=== PATIENT | female | born 1960 | race Caucasian/White ===

== ENCOUNTER 2021-01-03 15:01 | Emergency (ER) | payer OTHER ==
[~2021-01-03 15:01] MED LIST: Lidocaine Viscous Sol 2% 15 ml UD Cup ONE
[2021-01-03] MEDS ORDERED: Ondansetron PF 4 MG/2 ML Vial ONE (15:44)
[2021-01-03 15:52] LABS: Hemoglobin 14.8 g/dL (12.0-16.0); Mean Corpuscular HGB CONC 32.2 g/dL (32.0-36.0); Mean Corpuscular Hemoglobin 28.4 pg (27.0-31.0); Mean Corpuscular Volume 88.2 fL (78.0-98.0); Platelet Count 266 thou/uL (130-400); RBC Distribution Width 14.2 % (11.5-14.5); Red Blood Cell (RBC) Count 5.22 mill/uL (4.20-5.40); White Blood Cell (WBC) Count 4.2 thou/uL (4.8-10.8)
[2021-01-03 16:06] LABS: ALT (SGPT) 105 U/L (8-55); AST (SGOT) 36 U/L (5-34); Alkaline Phosphatase 75 U/L (40-110); Anion Gap 16 mmol/L (10-20); BUN (Urea Nitrogen) 17 mg/dL (9.8-20.1); Bilirubin, Total 0.5 mg/dL (0.2-1.2); Calc. Creatinine Clearance 0 mL/min (70-130); Calcium 10.3 mg/dL (7.8-10.44); Carbon Dioxide 23 mmol/L (22-29); Chloride 105 mmol/L (98-107); Globulin 2.7 g/dL (2.4-3.5); Glucose 105 mg/dL (70-105); Lipase 28 U/L (8-78); Potassium 4.1 mmol/L (3.5-5.1); Protein, Total 6.7 g/dL (6.0-8.3); Sodium 140 mmol/L (136-145)
[2021-01-03 17:37] LABS: Band 16 % (5-11); Eosinophils 4 % (0-10); Lymphocytes 33 % (21-51); MDiff Complete? YES; Monocytes 7 % (0-10); Neutrophil 37 % (42-75); Reactive Lymphocytes 1 % (0-10)
[2021-01-03] MEDS ORDERED: Oxymetazoline HCl 0.05% (30 ML BOT) ONE (17:54)
[2021-01-03] MEDS ORDERED: Benzocaine 20% Spray 60 ML CAN ONE (17:54)
[2021-01-03] MEDS ORDERED: Lorazepam 2 MG/ML VIAL ONE (18:14)
== END 2021-01-03 19:15 | disposition short-term general hospital (02) ==
LOC: BURERS 15:01
DX: K56.609 Unspecified intestinal obstruction, unspecified as to partial versus complete obstruction (principal); I10 Essential (primary) hypertension; Z87.891 Personal history of nicotine dependence; Z79.899 Other long term (current) drug therapy
CPT/HCPCS: 36415; 74018; 74022; 80053; 83690; 85025; 96374; 96375; J2060; J2405

== ENCOUNTER 2021-02-07 10:31 | Outpatient (CLI) | payer OTHER ==
[2021-02-07 10:47] LABS: Hemoglobin 15.3 g/dL (12.0-16.0); Mean Corpuscular HGB CONC 33.4 g/dL (32.0-36.0); Mean Corpuscular Hemoglobin 28.6 pg (27.0-31.0); Mean Corpuscular Volume 85.7 fL (78.0-98.0); Mean Platelet Volume 5.8 fL (7.4-10.4); Platelet Count 218 thou/uL (130-400); Red Blood Cell (RBC) Count 5.36 mill/uL (4.20-5.40); White Blood Cell (WBC) Count 2.1 thou/uL (4.8-10.8)
[2021-02-07 10:59] LABS: Anion Gap 17 mmol/L (10-20); BUN (Urea Nitrogen) 15 mg/dL (9.8-20.1); Calc. Creatinine Clearance 0 mL/min (70-130); Calcium 10.1 mg/dL (7.8-10.44); Carbon Dioxide 19 mmol/L (22-29); Chloride 109 mmol/L (98-107); Glucose 120 mg/dL (70-105); Potassium 4.3 mmol/L (3.5-5.1); Sodium 141 mmol/L (136-145)
[2021-02-07 11:21] LABS: MDiff Complete? YES
[2021-02-07 11:22] LABS: Eosinophils 4 % (0-10); Lymphocytes 44 % (21-51); Monocytes 7 % (0-10); Neutrophil 38 % (42-75); Platelet Morphology Comment Appears Adequate; RBC Morphology Normal; Reactive Lymphocytes 5 % (0-10)
== END 2021-02-07 10:32 | disposition home or self-care (01) ==
LOC: BURLABSP 10:31
PROVIDERS: ATTEND Nurse Practitioner
DX: C20 Malignant neoplasm of rectum (principal); K56.609 Unspecified intestinal obstruction, unspecified as to partial versus complete obstruction; G62.9 Polyneuropathy, unspecified; I10 Essential (primary) hypertension
CPT/HCPCS: 80048; 83735; 85025

== ENCOUNTER 2021-02-22 14:01 | Inpatient (IN) | payer OTHER ==
[~2021-02-22 14:01] MED LIST changes: +Iopamidol 370 76% 100 ML VIAL ONE; -Lidocaine Viscous Sol 2% 15 ml UD Cup ONE
[2021-02-22] MEDS ORDERED: Fentanyl 100 MCG/2 ML VIAL ONE (14:31)
[2021-02-22 14:36] LABS: ALT (SGPT) 21 U/L (8-55); AST (SGOT) 19 U/L (5-34); Albumin 4.6 g/dL (3.5-5.0); Alkaline Phosphatase 108 U/L (40-110); Anion Gap 19 mmol/L (10-20); BUN (Urea Nitrogen) 24 mg/dL (9.8-20.1); Bicarbonate (HCO3v) 13.5 mmol/L (22.0-28.0); Bilirubin, Total 1.1 mg/dL (0.2-1.2); CO2 Tension (PvCO2) 14.8 mmHg (42.0-51.0); Calc. Creatinine Clearance 0 mL/min (70-130); Calcium 11.1 mg/dL (7.8-10.44); Calcium, Ionized 1.22 mmol/L (1.15-1.33); Carbon Dioxide 14 mmol/L (22-29); Chloride 106 mmol/L (98-107); Chloride 107 mmol/L (98-107); Globulin 2.8 g/dL (2.4-3.5); Glucose 120 mg/dL (70-105); Hemoglobin 16.4 g/dL (12.0-16.0); Hemoglobin - Calc 15.3 g/dL (12.0-16.0); Lipase 146 U/L (8-78); Mean Corpuscular HGB CONC 34.5 g/dL (32.0-36.0); Mean Corpuscular Hemoglobin 29.2 pg (27.0-31.0); Mean Corpuscular Volume 84.6 fL (78.0-98.0); Mean Platelet Volume 8.5 fL (7.4-10.4); Platelet Count 127 thou/uL (130-400); Potassium 4.3 mmol/L (3.5-5.1); Protein, Total 7.4 g/dL (6.0-8.3); RBC Distribution Width 15.1 % (11.5-14.5); Red Blood Cell (RBC) Count 5.63 mill/uL (4.20-5.40); Sodium 135 mmol/L (136-145); Sodium 136 mmol/L (138-145); White Blood Cell (WBC) Count 3.9 thou/uL (4.8-10.8); vO2 Saturation-calc 98.8 % (60.0-85.0)
[2021-02-22 14:50] LABS: Anisocytosis SLIGHT = 6-15 cells (100X) (0-5/hpf); Band 5 % (5-11); Lymphocytes 52 % (21-51); MDiff Complete? YES; Monocytes 8 % (0-10); Neutrophil 30 % (42-75); Platelet Morphology Comment Appears Decreased; Reactive Lymphocytes 5 % (0-10)
[2021-02-22] MEDS ORDERED: Famotidine In NaCl 20 mg/50 ml Premix Bag ONE (15:35)
[2021-02-22 17:03] LABS: Lactic Acid 1.1 mmol/L (0.5-2.2)
[2021-02-22 17:52] LABS: SARS-CoV-2 NAA Rapid Test Not Detected (NotDetected)
[2021-02-22] MEDS ORDERED: Fentanyl 100 MCG/2 ML VIAL SLOW IVP PRN ×2 (19:23→19:26)
[2021-02-22] MEDS ORDERED: Ondansetron ODT 4 MG TAB SL PRN (19:30)
[2021-02-22] MEDS ORDERED: Ondansetron PF 4 MG/2 ML Vial IVP PRN (19:30)
[2021-02-22] MEDS: Dextrose 5 %-0.45 % NaCl 1,000 ML IV SCH (20:00)
[2021-02-22] MEDS ORDERED: Prevnar 13-Val Conj/PF 0.5 ML SYRINGE IM ONE (21:00)
[2021-02-22 23:08] VITALS: BMI 21.4
[2021-02-23] MEDS: Dextrose 5 %-0.45 % NaCl 1,000 ML IV SCH ×4 (02:31→19:44)
[2021-02-23] MEDS ORDERED: Fentanyl 100 MCG/2 ML VIAL ONE (02:37)
[2021-02-23 06:28] LABS: Anion Gap 11 mmol/L (10-20)
[2021-02-23 06:53] LABS: Albumin 3.3 g/dL (3.5-5.0); BUN (Urea Nitrogen) 14 mg/dL (9.8-20.1); Calc. Creatinine Clearance 78 mL/min (70-130); Calcium 8.8 mg/dL (7.8-10.44); Carbon Dioxide 20 mmol/L (22-29); Chloride 109 mmol/L (98-107); Glucose 116 mg/dL (70-105); Potassium 3.6 mmol/L (3.5-5.1); Sodium 136 mmol/L (136-145)
[2021-02-23] MEDS ORDERED: Acetaminophen 500 MG TAB PO PRN (07:46)
[2021-02-23] MEDS ORDERED: Polyethylene Glycol 3350 17 GM Packet PO PRN (07:46)
[2021-02-23] MEDS ORDERED: Docusate 100 MG CAP PO PRN (07:46)
[2021-02-23] MEDS ORDERED: valACYclovir 500 MG TAB PO PRN (07:46)
[2021-02-23] MEDS ORDERED: HALCION PO PRN (08:11)
[2021-02-23] MEDS ORDERED: PIMECROLIMUS 30 GM TOP PRN (08:13)
[2021-02-23] MEDS: Fluconazole 100 MG TAB PO SCH (09:52)
[2021-02-23] MEDS: Multivit, Therapeutic 1 TAB PO SCH (09:52)
[2021-02-23] MEDS: Cholecalciferol 1,000 UNITS (25 MCG) TAB PO SCH (09:54)
[2021-02-23] MEDS: Gabapentin 300 MG CAP PO SCH ×2 (09:54→20:32)
[2021-02-23] MEDS: Proctozone-HC 30 GM TUBE TOP SCH ×2 (10:04→20:32)
[2021-02-23 11:25] LABS: Phosphorus 2.8 mg/dL (2.3-4.7)
[2021-02-23] MEDS: Promethazine 25 MG TAB PO PRN (11:30)
[2021-02-23] MEDS ORDERED: Lorazepam 2 MG/ML VIAL ONE (12:27)
[2021-02-23] MEDS: Lorazepam 2 MG/ML VIAL SLOW IVP PRN (12:33)
[2021-02-23] MEDS: Metoclopramide HCl 10 MG/2 ML VIAL IVP PRN (12:45)
[2021-02-23] MEDS ORDERED: Ondansetron PF 4 MG/2 ML Vial IVP PRN (17:57)
[2021-02-24] MEDS: Dextrose 5 %-0.45 % NaCl 1,000 ML IV SCH ×3 (00:29→17:14)
[2021-02-24 05:17] LABS: Anion Gap 13 mmol/L (10-20); BUN (Urea Nitrogen) 6 mg/dL (9.8-20.1); Calc. Creatinine Clearance 83 mL/min (70-130); Calcium 8.8 mg/dL (7.8-10.44); Carbon Dioxide 19 mmol/L (22-29); Chloride 108 mmol/L (98-107); Glucose 107 mg/dL (70-105); Potassium 3.4 mmol/L (3.5-5.1); Sodium 137 mmol/L (136-145)
[2021-02-24 05:20] LABS: Hemoglobin 11.1 g/dL (12.0-16.0); Mean Corpuscular HGB CONC 33.7 g/dL (32.0-36.0); Mean Corpuscular Hemoglobin 29.1 pg (27.0-31.0); Mean Corpuscular Volume 86.5 fL (78.0-98.0); Mean Platelet Volume 8.1 fL (7.4-10.4); Platelet Count 86 thou/uL (130-400); RBC Distribution Width 15.1 % (11.5-14.5); White Blood Cell (WBC) Count 1.3 thou/uL (4.8-10.8)
[2021-02-24] MEDS: Metoclopramide HCl 10 MG/2 ML VIAL IVP PRN (06:24)
[2021-02-24] MEDS: Fluconazole 100 MG TAB PO SCH (09:05)
[2021-02-24] MEDS: Gabapentin 300 MG CAP PO SCH ×2 (09:06→20:27)
[2021-02-24] MEDS: Multivit, Therapeutic 1 TAB PO SCH (09:09)
[2021-02-24] MEDS: Cholecalciferol 1,000 UNITS (25 MCG) TAB PO SCH (09:09)
[2021-02-24] MEDS: Proctozone-HC 30 GM TUBE TOP SCH ×2 (09:13→20:26)
[2021-02-24] MEDS: Acetaminophen 325 MG TAB PO PRN ×2 (14:20→20:35)
[2021-02-24] MEDS: Lorazepam 2 MG/ML VIAL SLOW IVP PRN (14:22)
[2021-02-24] MEDS: Promethazine 25 MG TAB PO PRN (20:37)
[2021-02-25] MEDS: Dextrose 5 %-0.45 % NaCl 1,000 ML IV SCH (01:20)
[2021-02-25] MEDS: Lorazepam 2 MG/ML VIAL SLOW IVP PRN (04:15)
[2021-02-25] MEDS: Promethazine 25 MG TAB PO PRN (05:43)
[2021-02-25] MEDS: Fluconazole 100 MG TAB PO SCH (08:15)
[2021-02-25] MEDS: Gabapentin 300 MG CAP PO SCH (08:17)
[2021-02-25] MEDS: Cholecalciferol 1,000 UNITS (25 MCG) TAB PO SCH (08:18)
[2021-02-25] MEDS: Multivit, Therapeutic 1 TAB PO SCH (08:18)
[2021-02-25] MEDS: Proctozone-HC 30 GM TUBE TOP SCH (08:20)
[2021-02-25 10:05] VITALS: BP 112/70; TEMP 98.7
== END 2021-02-25 11:45 | disposition home or self-care (01) | DRG 809 ==
LOC: BURERS 14:01 → OBSVTOIN 17:01 → BURMED 17:01
PROVIDERS: ADMIT Family Medicine; ATTEND Family Medicine
DX: D70.1 Agranulocytosis secondary to cancer chemotherapy (principal); C20 Malignant neoplasm of rectum; T45.1X5A Adverse effect of antineoplastic and immunosuppressive drugs, initial encounter; E86.0 Dehydration; I10 Essential (primary) hypertension; Z20.822 Contact with and (suspected) exposure to COVID-19; Z88.0 Allergy status to penicillin; Z88.8 Allergy status to other drugs, medicaments and biological substances; Z88.5 Allergy status to narcotic agent; Z79.899 Other long term (current) drug therapy; Z90.89 Acquired absence of other organs; Z90.710 Acquired absence of both cervix and uterus; Z93.2 Ileostomy status
CPT/HCPCS: 36415; 71275; 74177; 80048; 80053; 80069; 82330; 82803; 83605; 83690; 84484; 85025; 85027; 93005; 94760; 96361; 96365; 96375; J2060; J2405; J2765; J3010; J7042; Q0169; Q9967; U0002

== ENCOUNTER 2021-03-10 11:14 | Emergency (ER) | payer OTHER ==
[2021-03-10] MEDS ORDERED: Ondansetron PF 4 MG/2 ML Vial ONE ×2 (11:22→14:34)
[2021-03-10] MEDS ORDERED: Ketorolac Tromethamine 30 MG/ML VIAL ONE (11:22)
[2021-03-10] MEDS ORDERED: Famotidine In NaCl 20 mg/50 ml Premix Bag ONE (11:23)
[2021-03-10 11:32] LABS: #Basophils 0.2 thou/uL (0.0-0.2); #Lymphocytes 1.9 thou/uL (1.20-3.40); #Monocytes 0.9 thou/uL (0.11-0.59); #Neutrophils 7.5 thou/uL (1.40-6.50); %Basophils 1.9 % (0.0-1.0); %Eosinophils 0.1 % (0.0-10.0); %Lymphocytes 18.4 % (21.0-51.0); %Monocytes 8.2 % (0.0-10.0); %Neutrophils 71.5 % (42.0-75.0); Hemoglobin 15.6 g/dL (12.0-16.0); Mean Corpuscular HGB CONC 34.6 g/dL (32.0-36.0); Mean Corpuscular Hemoglobin 29.2 pg (27.0-31.0); Mean Corpuscular Volume 84.4 fL (78.0-98.0); Mean Platelet Volume 6.2 fL (7.4-10.4); Platelet Count 289 thou/uL (130-400); RBC Distribution Width 15.7 % (11.5-14.5); Red Blood Cell (RBC) Count 5.36 mill/uL (4.20-5.40); White Blood Cell (WBC) Count 10.4 thou/uL (4.8-10.8)
[2021-03-10 11:47] LABS: ALT (SGPT) 47 U/L (8-55); AST (SGOT) 33 U/L (5-34); Albumin 4.6 g/dL (3.5-5.0); Alkaline Phosphatase 92 U/L (40-110); Anion Gap 20 mmol/L (10-20); BUN (Urea Nitrogen) 22 mg/dL (9.8-20.1); Bilirubin, Total 0.6 mg/dL (0.2-1.2); Calc. Creatinine Clearance 0 mL/min (70-130); Calcium 10.9 mg/dL (7.8-10.44); Carbon Dioxide 14 mmol/L (22-29); Chloride 105 mmol/L (98-107); Glucose 127 mg/dL (70-105); Lipase 38 U/L (8-78); Potassium 4.3 mmol/L (3.5-5.1); Protein, Total 7.6 g/dL (6.0-8.3); Sodium 135 mmol/L (136-145)
[2021-03-10 16:53] LABS: CKMB 3.8 ng/mL (0-6.6)
== END 2021-03-10 16:56 | disposition short-term general hospital (02) ==
LOC: BURERS 11:14
DX: R07.2 Precordial pain (principal); R79.1 Abnormal coagulation profile
CPT/HCPCS: 36415; 71045; 80053; 82553; 83690; 84484; 85025; 85379; 93005; 96374; 96375; J1885; J2405

== ENCOUNTER 2021-07-01 16:15 | Emergency (ER) | payer BC ==
[2021-07-01] MEDS ORDERED: Iopamidol 370 76% 100 ML VIAL FS ONE (16:16)
[2021-07-01] MEDS ORDERED: Promethazine HCl 25 MG/ML VIAL ONE (16:29)
[2021-07-01 16:53] LABS: #Eosinphils 0.3 thou/uL (0.0-0.7); #Lymphocytes 0.4 thou/uL (1.20-3.40); #Monocytes 0.4 thou/uL (0.11-0.59); #Neutrophils 4.6 thou/uL (1.40-6.50); %Basophils 0.8 % (0.0-1.0); %Eosinophils 5.9 % (0.0-10.0); %Monocytes 6.7 % (0.0-10.0); %Neutrophils 79.7 % (42.0-75.0); Hemoglobin 15.3 g/dL (12.0-16.0); Mean Corpuscular HGB CONC 34.7 g/dL (32.0-36.0); Mean Corpuscular Hemoglobin 33.7 pg (27.0-31.0); Mean Platelet Volume 5.6 fL (7.4-10.4); Platelet Count 215 thou/uL (130-400); RBC Distribution Width 15.2 % (11.5-14.5); Red Blood Cell (RBC) Count 4.53 mill/uL (4.20-5.40); White Blood Cell (WBC) Count 5.7 thou/uL (4.8-10.8)
[2021-07-01 17:08] LABS: ALT (SGPT) 18 U/L (8-55); AST (SGOT) 20 U/L (5-34); Albumin 3.9 g/dL (3.5-5.0); Alkaline Phosphatase 66 U/L (40-110); Anion Gap 16 mmol/L (10-20); BUN (Urea Nitrogen) 27 mg/dL (9.8-20.1); Bilirubin, Total 0.8 mg/dL (0.2-1.2); Calc. Creatinine Clearance 0 mL/min (70-130); Calcium 10.1 mg/dL (7.8-10.44); Carbon Dioxide 17 mmol/L (22-29); Chloride 105 mmol/L (98-107); Glucose 123 mg/dL (70-105); Lipase 33 U/L (8-78); Potassium 4.4 mmol/L (3.5-5.1); Protein, Total 5.9 g/dL (6.0-8.3); Sodium 134 mmol/L (136-145)
[2021-07-01 17:25] LABS: CKMB 3.1 ng/mL (0-6.6)
[2021-07-01 17:45] LABS: Bilirubin Negative (Negative); Blood, Urine Negative (Negative); Clarity Clear (Clear); Glucose, Urine (Dipstick) Negative (Negative); Ketone, Urine Trace mg/dL (Negative); Leukocyte Negative (Negative); Nitrite Negative (Negative); Protein, Urine (Dipstick) 30 mg/dL (Neg-Trace); Urobilinogen 0.2 mg/dL (Less than 2); pH, Urine 5.5 (5.0-9.0)
[2021-07-01 17:58] LABS: Bacteria/HPF 1+ HPF (None Seen); Calcium Oxalate Crystals 1+ HPF (None Seen); RBC/HPF 0-3 HPF (0-3); Squamous Epithelial 0-3 HPF (0-3); WBC/HPF 0-3 HPF (0-3)
== END 2021-07-01 19:12 | disposition home or self-care (01) ==
LOC: BURERS 16:15
DX: E86.0 Dehydration (principal); T45.1X5A Adverse effect of antineoplastic and immunosuppressive drugs, initial encounter; R11.2 Nausea with vomiting, unspecified; I10 Essential (primary) hypertension
CPT/HCPCS: 36415; 71045; 71275; 80053; 81003; 81015; 82553; 83690; 84484; 85025; 85379; 93005; 96374; J2550; Q9967

== ENCOUNTER 2021-07-09 22:49 | Emergency (ER) | payer BC ==
[2021-07-09] MEDS ORDERED: Fentanyl 100 MCG/2 ML VIAL ONE (23:12)
[2021-07-09] MEDS ORDERED: Ondansetron PF 4 MG/2 ML Vial ONE (23:12)
[2021-07-09] MEDS ORDERED: Famotidine In NaCl 20 mg/50 ml Premix Bag ONE (23:16)
[2021-07-09 23:20] LABS: #Eosinphils 0.1 thou/uL (0.0-0.7); #Lymphocytes 0.2 thou/uL (1.20-3.40); #Monocytes 0.3 thou/uL (0.11-0.59); #Neutrophils 5.5 thou/uL (1.40-6.50); %Basophils 0.7 % (0.0-1.0); %Eosinophils 1.2 % (0.0-10.0); %Lymphocytes 3.3 % (21.0-51.0); %Monocytes 5.4 % (0.0-10.0); %Neutrophils 89.4 % (42.0-75.0); Hemoglobin 16.4 g/dL (12.0-16.0); Mean Corpuscular HGB CONC 36.3 g/dL (32.0-36.0); Mean Corpuscular Hemoglobin 33.7 pg (27.0-31.0); Mean Corpuscular Volume 92.7 fL (78.0-98.0); Mean Platelet Volume 5.9 fL (7.4-10.4); Platelet Count 240 thou/uL (130-400); RBC Distribution Width 15.1 % (11.5-14.5); Red Blood Cell (RBC) Count 4.87 mill/uL (4.20-5.40); White Blood Cell (WBC) Count 6.1 thou/uL (4.8-10.8)
[2021-07-09 23:35] LABS: ALT (SGPT) 36 U/L (8-55); AST (SGOT) 29 U/L (5-34); Albumin 3.6 g/dL (3.5-5.0); Alkaline Phosphatase 53 U/L (40-110); Anion Gap 17 mmol/L (10-20); BUN (Urea Nitrogen) 22 mg/dL (9.8-20.1); Bilirubin, Total 1.2 mg/dL (0.2-1.2); Calc. Creatinine Clearance 0 mL/min (70-130); Calcium 9.4 mg/dL (7.8-10.44); Carbon Dioxide 18 mmol/L (22-29); Chloride 103 mmol/L (98-107); Globulin 1.7 g/dL (2.4-3.5); Glucose 166 mg/dL (70-105); Lipase 20 U/L (8-78); Protein, Total 5.3 g/dL (6.0-8.3); Sodium 135 mmol/L (136-145)
[2021-07-09 23:47] LABS: Potassium 2.7 mmol/L (3.5-5.1)
[2021-07-09 23:51] LABS: CKMB 2.9 ng/mL (0-6.6)
[2021-07-10] MEDS ORDERED: Fentanyl 100 MCG/2 ML VIAL ONE (04:05)
[2021-07-10] MEDS ORDERED: Ondansetron PF 4 MG/2 ML Vial ONE ×2 (05:25→07:56)
[2021-07-10 05:55] LABS: Bilirubin Small (Negative); Blood, Urine Negative (Negative); Clarity Clear (Clear); Glucose, Urine (Dipstick) 100 mg/dL (Negative); Ketone, Urine Trace mg/dL (Negative); Leukocyte Negative (Negative); Nitrite Negative (Negative); Protein, Urine (Dipstick) Trace mg/dL (Neg-Trace); Urobilinogen 0.2 mg/dL (Less than 2)
[2021-07-10] MEDS ORDERED: Pantoprazole 40 MG VIAL ONE (09:45)
[2021-07-10] MEDS ORDERED: Promethazine HCl 25 MG/ML VIAL ONE (09:45)
[2021-07-10 09:48] LABS: Anion Gap 10 mmol/L (10-20); BUN (Urea Nitrogen) 16 mg/dL (9.8-20.1); Calc. Creatinine Clearance 0 mL/min (70-130); Calcium 8.8 mg/dL (7.8-10.44); Carbon Dioxide 19 mmol/L (22-29); Chloride 108 mmol/L (98-107); Glucose 98 mg/dL (70-105); Potassium 3.3 mmol/L (3.5-5.1); Sodium 134 mmol/L (136-145)
[2021-07-10 10:31] LABS: SARS-CoV-2 NAA Rapid Test Not Detected (NotDetected)
[2021-07-10 10:34] LABS: CKMB 4.3 ng/mL (0-6.6)
== END 2021-07-10 12:39 | disposition short-term general hospital (02) ==
LOC: BURERS 22:49
DX: R11.2 Nausea with vomiting, unspecified (principal); E87.6 Hypokalemia; R77.8 Other specified abnormalities of plasma proteins; I10 Essential (primary) hypertension; Z79.82 Long term (current) use of aspirin; Z79.899 Other long term (current) drug therapy
CPT/HCPCS: 36415; 80048; 80053; 81003; 82553; 83605; 83690; 84484; 85025; 94760; 96361; 96365; 96367; 96375; 96376; C9113; J2405; J2550; J3010; U0002

== ENCOUNTER 2021-10-10 04:01 | Emergency (ER) | payer BC ==
[2021-10-10] MEDS ORDERED: Iopamidol 370 76% 100 ML VIAL FS ONE (04:02)
[2021-10-10] MEDS ORDERED: HYDROmorphone 0.5 MG/0.5 ML SYRINGE ONE ×2 (04:22→05:13)
[2021-10-10 04:52] LABS: #Basophils 0.1 thou/uL (0.0-0.2); #Eosinphils 0.5 thou/uL (0.0-0.7); #Lymphocytes 1.4 thou/uL (1.20-3.40); #Monocytes 0.7 thou/uL (0.11-0.59); #Neutrophils 8.1 thou/uL (1.40-6.50); %Basophils 0.9 % (0.0-1.0); %Eosinophils 4.7 % (0.0-10.0); %Monocytes 6.2 % (0.0-10.0); %Neutrophils 75.3 % (42.0-75.0); Hemoglobin 11.9 g/dL (12.0-16.0); Mean Corpuscular HGB CONC 33.7 g/dL (32.0-36.0); Mean Corpuscular Hemoglobin 30.9 pg (27.0-31.0); Mean Corpuscular Volume 91.5 fL (78.0-98.0); Mean Platelet Volume 5.1 fL (7.4-10.4); Platelet Count 491 thou/uL (130-400); RBC Distribution Width 13.6 % (11.5-14.5); Red Blood Cell (RBC) Count 3.86 mill/uL (4.20-5.40); White Blood Cell (WBC) Count 10.8 thou/uL (4.8-10.8)
[2021-10-10] MEDS ORDERED: Ondansetron PF 4 MG/2 ML Vial ONE (04:52)
[2021-10-10 05:10] LABS: ALT (SGPT) 26 U/L (8-55); AST (SGOT) 20 U/L (5-34); Albumin 3.8 g/dL (3.5-5.0); Alkaline Phosphatase 75 U/L (40-110); Anion Gap 17 mmol/L (10-20); BUN (Urea Nitrogen) 22 mg/dL (9.8-20.1); Bilirubin, Total 0.2 mg/dL (0.2-1.2); Calc. Creatinine Clearance 0 mL/min (70-130); Calcium 10.7 mg/dL (7.8-10.44); Carbon Dioxide 18 mmol/L (22-29); Chloride 107 mmol/L (98-107); Globulin 2.6 g/dL (2.4-3.5); Glucose 105 mg/dL (70-105); Lipase 23 U/L (8-78); Magnesium 1.6 mg/dL (1.6-2.6); Potassium 4.1 mmol/L (3.5-5.1); Protein, Total 6.4 g/dL (6.0-8.3); Sodium 138 mmol/L (136-145)
[2021-10-10] MEDS ORDERED: HYDROcodone/Acetaminophen 10/325 mg Tablet ONE (06:35)
[2021-10-10 07:02] LABS: Bilirubin Negative (Negative); Blood, Urine Negative (Negative); Clarity Clear (Clear); Glucose, Urine (Dipstick) Negative (Negative); Ketone, Urine Negative (Negative); Leukocyte Negative (Negative); Nitrite Negative (Negative); Protein, Urine (Dipstick) Negative (Neg-Trace); Specific Gravity, Urine 1.015 (1.005-1.030); Urobilinogen 0.2 mg/dL (Less than 2)
[2021-10-10] MEDS ORDERED: Heparin 10,000 UNITS/1 ML VIAL ONE (07:41)
== END 2021-10-10 08:04 | disposition home or self-care (01) ==
LOC: BURERS 04:01
DX: G89.18 Other acute postprocedural pain (principal); R10.84 Generalized abdominal pain; K80.20 Calculus of gallbladder without cholecystitis without obstruction; R11.2 Nausea with vomiting, unspecified; I10 Essential (primary) hypertension; Z79.899 Other long term (current) drug therapy
CPT/HCPCS: 74177; 80053; 81003; 83605; 83690; 83735; 84484; 85025; 93005; 96374; 96375; J1170; J1642; J1644; J2405; Q9967

== ENCOUNTER 2021-10-23 09:02 | Emergency (ER) | payer BC, SELFPAY ==
[2021-10-23 09:47] LABS: #Basophils 0.1 thou/uL (0.0-0.2); #Eosinphils 0.7 thou/uL (0.0-0.7); #Lymphocytes 1.5 thou/uL (1.20-3.40); #Monocytes 0.5 thou/uL (0.11-0.59); #Neutrophils 6.1 thou/uL (1.40-6.50); %Basophils 1.2 % (0.0-1.0); %Lymphocytes 16.7 % (21.0-51.0); %Monocytes 5.1 % (0.0-10.0); Hemoglobin 11.1 g/dL (12.0-16.0); Mean Corpuscular HGB CONC 32.4 g/dL (32.0-36.0); Mean Corpuscular Hemoglobin 29.2 pg (27.0-31.0); Mean Corpuscular Volume 90.2 fL (78.0-98.0); Mean Platelet Volume 4.6 fL (7.4-10.4); Platelet Count 506 thou/uL (130-400); RBC Distribution Width 14.6 % (11.5-14.5); Red Blood Cell (RBC) Count 3.78 mill/uL (4.20-5.40); White Blood Cell (WBC) Count 8.8 thou/uL (4.8-10.8)
[2021-10-23 09:50] LABS: Bilirubin Negative (Negative); Blood, Urine Negative (Negative); Clarity Clear (Clear); Glucose, Urine (Dipstick) Negative (Negative); Ketone, Urine Negative (Negative); Leukocyte Negative (Negative); Nitrite Negative (Negative); Protein, Urine (Dipstick) Negative (Neg-Trace); Urobilinogen 0.2 mg/dL (Less than 2)
[2021-10-23 10:03] LABS: Specific Gravity, Urine 1.004 (1.002-1.036)
[2021-10-23 10:08] LABS: ALT (SGPT) 25 U/L (8-55); AST (SGOT) 21 U/L (5-34); Alkaline Phosphatase 88 U/L (40-110); Anion Gap 15 mmol/L (10-20); BUN (Urea Nitrogen) 17 mg/dL (9.8-20.1); Bilirubin, Total Less than 0.2 mg/dL (0.2-1.2); CK (CPK) 42 U/L (29-168); Calc. Creatinine Clearance 0 mL/min (70-130); Calcium 10.5 mg/dL (7.8-10.44); Carbon Dioxide 24 mmol/L (22-29); Chloride 106 mmol/L (98-107); Globulin 3.1 g/dL (2.4-3.5); Glucose 90 mg/dL (70-105); Potassium 3.8 mmol/L (3.5-5.1); Protein, Total 7.1 g/dL (6.0-8.3); Sodium 141 mmol/L (136-145)
[2021-10-23] MEDS ORDERED: HYDROcodone/Acetaminophen 10/325 mg Tablet ONE (10:28)
== END 2021-10-23 11:04 | disposition home or self-care (01) ==
LOC: BURERS 09:02
DX: R33.9 Retention of urine, unspecified (principal); C18.9 Malignant neoplasm of colon, unspecified; K62.5 Hemorrhage of anus and rectum; I10 Essential (primary) hypertension; Z79.899 Other long term (current) drug therapy
CPT/HCPCS: 36415; 51702; 80053; 81003; 82550; 85025; 87086